=== PATIENT | female | born 1975 | race Caucasian/White ===

== ENCOUNTER → 2017-10-31 | Outpatient (CLI) | payer BC ==
[~2017-10-31] MED LIST: ALEVE220 MG PO; BUPROPION; CYMBALTA30 MG PO; HYDROCODONE-APA1 TA1 PO; IBUPROFEN 800800 MG PO; LEVOTHYROXIN0.025 MG; LEVOTHYROXIN0.125 M1 PO; LEXAPRO 10 MG T10 MG PO; LORTAB 5-500 T1 EAC1 PO; MOBIC7.5 M1 PO; MOBIC7.5 MG PO; NORCO 5-325 TA1 EACH PO; PERCOCET PO; TIZANIDINE HCL 22 M1 PO; TRAMADOL 50 MG50 MG PO; ZANAFLEX4 MG PO
== END ==
LOC: M.RAD 17:15
DX: M46.1 Sacroiliitis, not elsewhere classified (principal)